=== PATIENT | male | born 1980 | race African-American/Black ===

== ENCOUNTER 2017-01-23 14:25 | Emergency (ER) | payer OTHER ==
[~2017-01-23] VITALS: Ht 188 cm; Wt 87.7 kg
[2017-01-23 14:27] VITALS: BP 158/80
[2017-01-23 16:14] LABS: BLOOD UREA NITROGEN 11 mg/dL (7-18)
[2017-01-23 16:18] LABS: IS PT STATUS REG ER OR PRE ER? YES
== END 2017-01-23 16:47 | disposition home or self-care (01) ==
LOC: ED 16:30
DX: R07.89 Other chest pain (principal)
CPT/HCPCS: 36415; 71010; 80048; 82040; 84484; 85025; 93005